=== PATIENT | female | born 1955 | race Caucasian/White ===

== ENCOUNTER → 2016-10-16 | Outpatient (CLI) | payer BC, OTHER ==
[~2016-10-16] MED LIST: CITRTAB14 PO; ENTERO VU 24% w/v SUSP BTL 600ML As Ordered ONE; FLON0.054; HYDR25TAB PO; LIPI20TA PO; LISI40TAB PO; MULTCAP PO; OMEP40CA2 PO; SYNT88TA2 PO
--- NOTE | 2016-10-16 11:04 | REP ---
SMALL FOLLOW-THROUGH STUDY: HISTORY: Abnormality of the small intestine on CT study July 08, 2016. COMPARISON STUDIES: Comparison CT study reviewed from the July 08, 2016, April 19, 2014, and April 06, 2012. Previous small bowel follow-through study is reviewed from May 13, 2012. FINDINGS: Today's preliminary special services coordinator radiograph is noncontributory. Bowel gas pattern is unremarkable. Sequential small bowel images taken after the ingestion of Entero-VU demonstrate normal caliber jejunal and ileal folds. No obstructive lesion is seen. No mural thickening or fold thickening is seen. The small bowel folds in the jejunum are more numerous than usual but not frankly reversed. This raises question of celiac disease. Terminal ileum is morphologically unremarkable on fluoroscopic spot views. On review, this patient has a recurrent pattern on serial CT studies of intermittent distal ileal mural thickening, mesenteric inflammation, and a mild ascitic fluid . Follow-up CT and small bowel follow-through studies have been normal. IMPRESSION: The mucosal folds in the ileum are more numerous than usual. This raises a question of celiac disease. Otherwise unremarkable small bowel follow-through study Fluoroscopy time was 24 seconds. Signed by Fito Moraes MD 10/16/2016 06:35 P
== END ==
LOC: M RAD 08:22
PROVIDERS: ATTEND Internal Medicine Gastroenterology
DX: R93.3 Abnormal findings on diagnostic imaging of other parts of digestive tract (principal)

== ENCOUNTER → 2016-11-13 | Outpatient (CLI) | payer BC, OTHER ==
[~2016-11-13] VITALS: Ht 157.5 cm; Wt 87.5 kg
[~2016-11-13] MED LIST changes: +CITRTAB18 PO; -ENTERO VU 24% w/v SUSP BTL 600ML As Ordered ONE; +FLON1SPR; +LISI10TA2 PO; +MAGN500T6 PO; +NS 1,000 ML IV ONE; +PROPOFOL 200 MG/20 ML VIAL As Ordered ONE
--- NOTE | 2016-11-13 12:11 | ROOR ---
Patient Name: Valentina Marie Procedure Date: 11/13/2016 11:52 AM Date of : 1955 Age: 61 Room: [facility] Gender: Female Note Status: Finalized Procedure: Colonoscopy Indications: High risk colon cancer surveillance: Personal history of colonic polyps Providers: Clint SCOTT MD Referring MD: Sukhwinder Gregory NP Requesting Provider: Medicines: Monitored Anesthesia Care Complications: No immediate complications. Procedure: Pre-Anesthesia Assessment: - The heart rate, respiratory rate, oxygen saturations, blood pressure, adequacy of pulmonary ventilation, and response to care were monitored throughout the procedure. The Colonoscope was introduced through the anus and advanced to the cecum, identified by appendiceal orifice and ileocecal valve. The colonoscopy was performed without difficulty. The patient tolerated the procedure well. The quality of the bowel preparation was good. Findings: The perianal and digital rectal examinations were normal. Three flat polyps were found in the sigmoid colon and ascending colon. The polyps were diminutive in size. These polyps were removed with a jumbo cold forceps. Resection and retrieval were complete. Small Internal Hemorrhoids. The exam was otherwise without abnormality on direct and retroflexion views. Impression: - Three diminutive polyps in the sigmoid colon and in the ascending colon, removed with a jumbo cold forceps. Resected and retrieved. - Small Internal Hemorrhoids. - The examination was otherwise normal on direct and retroflexion views. Recommendation: - Telephone endoscopist for pathology results in 2 weeks. - If the pathology report reveals adenomatous tissue, then repeat the colonoscopy for surveillance in 5 years. - If the pathology report indicates hyperplastic polyp, then repeat colonoscopy for screening purposes in 10 years. Clint Scott MD Clint SCOTT MD 11/13/2016 12:11:15 PM This report has been signed electronically. Number of Addenda: 0 Note Initiated On: 11/13/2016 11:52 AM Estimated Blood Loss: Estimated blood loss: none.
[2016-11-13 12:30] VITALS: BP 123/58
== END ==
LOC: M OPP 09:59
PROVIDERS: ATTEND Internal Medicine Gastroenterology
DX: Z12.11 Encounter for screening for malignant neoplasm of colon (principal); Z86.010 Personal history of colon polyps; D12.5 Benign neoplasm of sigmoid colon; D12.2 Benign neoplasm of ascending colon; K64.8 Other hemorrhoids; E03.9 Hypothyroidism, unspecified; K21.9 Gastro-esophageal reflux disease without esophagitis; E78.00 Pure hypercholesterolemia, unspecified; Z79.899 Other long term (current) drug therapy; Z88.5 Allergy status to narcotic agent

== ENCOUNTER 2016-11-30 09:23 | Observation (INO) | payer BC, OTHER ==
[~2016-11-30 09:23] MED LIST changes: -NS 1,000 ML IV ONE; -PROPOFOL 200 MG/20 ML VIAL As Ordered ONE
[2016-11-30] MEDS ORDERED: AMIODARONE 150MG/3ML INJ (J0282) IVP STA (09:37)
[2016-11-30] MEDS ORDERED: AMIODARONE HCL 150 MG/100 ML PREMIXED BAG (NEXTERONE) As Ordered ONE (09:38)
--- NOTE | 2016-11-30 09:40 | ED PDOC ---
Post-Departure Follow-Up Patient seen by Dr. Fraser upon arrival. I assisted by entering orders for him only Emily Harmon MD November 30, 2016 09:40
[2016-11-30 10:01] LABS: BASO % 0.3 % (0.0-1.0); EOS # 0.1 K/mm3 (0.0-0.50); EOS % 1.5 % (0.0-3.0); LARGE UNSTAINED CELL # 0.1 K/mm3 (0.0-0.4); LARGE UNSTAINED CELL % 1.2 % (0.0-4.0); LYMPH # 1.9 K/mm3 (1.5-4.5); LYMPH % 27.8 % (24.0-44.0); MEAN CORPUSCULAR HEMOGLOBIN 30.2 pg (27.0-33.0); MEAN CORPUSCULAR VOLUME 88.9 fl (80.0-96.0); MONO # 0.3 K/mm3 (0.0-0.8); MONO % 4.8 % (0.0-5.0); NEUTROPHILS # 4.2 K/mm3 (1.8-7.7); NEUTROPHILS % 64.5 % (36.0-66.0); PLATELET COUNT, AUTOMATED 345 k/mm3 (150-450); RED CELL DISTRIBUTION WIDTH 13.1 % (11.5-14.5); WHITE BLOOD COUNT 6.6 K/mm3 (4.0-10.0)
[2016-11-30 10:13] LABS: ALBUMIN 2.9 GM/DL (3.2-5.2); ALBUMIN/GLOBULIN RATIO 0.78 (1.00-1.93); ALKALINE PHOSPHATASE 62 U/L (45-117); ALT/SGPT 28 U/L (12-78); ANION GAP 8 MEQ/L (8-16); AST/SGOT 20 U/L (15-37); BILIRUBIN,DIRECT < 0.1 MG/DL (0.0-0.2); BILIRUBIN,TOTAL 0.3 MG/DL (0.2-1.0); BLOOD UREA NITROGEN 18 MG/DL (7-18); CALCIUM LEVEL 8.1 MG/DL (8.8-10.2); CARBON DIOXIDE LEVEL 29 MEQ/L (21-32); CHLORIDE LEVEL 106 MEQ/L (98-107); CREATININE FOR GFR 1.06 MG/DL (0.55-1.02); FREE T4 1.23 NG/DL (0.76-1.46); GLOMERULAR FILTRATION RATE 56.1 (>45); GLUCOSE, FASTING 107 MG/DL (80-110); POTASSIUM SERUM 4.1 MEQ/L (3.5-5.1); SODIUM LEVEL 143 MEQ/L (136-145); TOTAL PROTEIN 6.6 GM/DL (6.4-8.2)
[2016-11-30 10:14] LABS: INR 1.06
--- NOTE | 2016-11-30 10:33 | REP ---
Clinical: Chest pain . Comparison: 08/21/2015 . Technique: PA and lateral. Findings: The mediastinum and cardiac silhouette are normal. The lung martinez are clear and without acute consolidation, effusion, or pneumothorax. The skeletal structures are intact and normal. Impression: 1. No acute cardiopulmonary process. Signed by Trey Laguna MD 11/30/2016 10:24 A
[2016-11-30] MEDS ORDERED: KCL 20MEQ IN D5/0.45NS 1000ML 1,000 ML IV SCH (10:45)
[2016-11-30] MEDS ORDERED: HEPARIN DRIP 25,000 UNITS in APPROPRIATE DILUENT 1 EA IV SCH ×2 (11:00→16:15)
[2016-11-30] MEDS ORDERED: AMIODARONE HCL 150 MG in APPROPRIATE DILUENT 1 EA IV ONE (11:00)
--- NOTE | 2016-11-30 11:33 | CR ---
CRITICAL CARE CARDIOLOGY CONSULTATION: DATE OF CONSULTATION: 11/30/2016 CRITICAL CARE START TIME: 8:25 a.m. CRITICAL CARE STOP TIME: 10:00 a.m. PRIMARY CARE PHYSICIAN: Sukhwinder Gregory, Nurse Practitioner INDICATION: Chest pressure and near syncope. 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 While sitting at her desk working on her computer, she developed a chest pressure that radiated through to her back. Noted accompanying faintness and diaphoresis. She finally brought this to coworkers attention at approximately 8:25 a.m. who promptly sought my attention. She was shifted to one of our examination rooms and connected to a bedside cardioverter defibrillator monitor. An IV was started in her right arm. Initial vital signs showed a heart rate of 160 beats per minute, blood pressure 165/80, respiratory rate was 28 per minute, oxygen saturation was 98% on room air. Her gambling monitor showed atrial fibrillation with rapid ventricular response averaging 160-170 beats per minute (BPM). Initial EKG showed mild anterolateral ST depression. The patient was given immediately digoxin 0.5 mg IV, followed by metoprolol 5 mg IV every 5 minutes for 6 doses under close clinical and EKG monitoring. At the same time, she was given aspirin 162 mg to chew and swallow, and heparin 5000 units IV bolus. Following these measures, the patient's chest pressure significantly improved from initial 10/10 to 2-3/10. Her heart rate decreased to 90-100 beats per minute but still irregular. Blood pressure was 135/70. The patient was free of any dyspnea but still felt a little lightheaded when she shifted her position. An ambulance have been summoned and transferred her to [facility] emergency room (ER) arriving here at 9:32 a.m. Just prior to her transfer, she had received amiodarone 150 mg IV over 10 minutes. KNOWN PAST CARDIAC DISEASE/EVENTS/TESTS: Has had a history of a weight problem and hypertension for some time, though serial echocardiograms performed for heart murmur have never shown any structural or functional abnormality to suggest hypertensive heart disease. Her last echocardiogram 2012 showed normal heart chamber sizes, wall thickness and wall motion. Doppler assessment of LV diastolic function was normal. Right heart chambers were upper limits of normal with borderline pulmonary hypertension. Valvular structures appeared and functioned normally. Has a history of small patent foremen ovale with very subtle left to right intra-atrial shunting. No pericardial effusion. Has had a history of intermittent chest discomfort in the past with previous negative workups. Treadmill Cardiolite heart scan 07/23/2008 showed good exercise tolerance completing 9 minutes on standard Luc protocol with heart rate 187 beats per minute, blood pressure up to 248/80, stopping with shortness of breath but no chest pain. Baseline repolarization EKG abnormalities became no more than marginally worse. Left ventricular size and wall motion was normal. Normal pulmonary uptake at peak exercise against her dyspnea being cardiogenic. Myocardial perfusion images were normal. CORONARY RISK FACTORS: Age, obesity, hypertension, and hypercholesterolemia. Has never been a smoker. No history of diabetes mellitus or family history of premature coronary heart disease. OTHER PAST MEDICAL HISTORY: Two normal vaginal deliveries. Total abdominal hysterectomy with bilateral salpingo-oophorectomy 2000 for menorrhagia and fibroid uterus. Gastroesophageal reflux disease with prior endoscopy with Dr. Scott, gastroenterology. Continues on omeprazole therapy with good effect. History of prior colonic polypectomy - benign. Last study done last month. Longstanding weight problem. Chronic hypothyroidism - Purvi's thyroiditis query, on replacement therapy. Prior herpes zoster. Prior ovarian endometriosis. Previous gastroenteritis with hospitalization for abdominal pain April 2014. 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 REVIEW OF SYSTEMS: Has been free of any fever, chills or weight loss. Wears corrective lenses for reading. Chest pressure with no associated gastrointestinal (GI) complaints at this time. Denies cough, sputum or shortness of breath. No history of sleep apnea. Longstanding heart murmur but no history of rheumatic fever. No history of varicose veins, dependent edema, phlebitis or pulmonary embolism. No dysuria or hematuria. No history of kidney stones. Seasonal allergies, takes Flonase with good effect. MEDICATIONS: At home she takes: - lisinopril /HCTZ - 10/12.5 mg daily - Lipitor 20 mg nightly - omeprazole 20 mg daily - magnesium 500 mg daily - multivitamin one tablet daily - levofloxacin 88 mcg daily - Flonase one inhalation each nostril daily - multivitamin one tablet daily with calcium with vitamin D one tablet daily ALLERGIES: HYDROCODONE (pruritus). PHYSICAL EXAMINATION: Constitutional: Obese, pleasant, bright, alert, late middle-aged woman with some distress with the head of bed elevated 30 degrees. No current pallor or cyanosis. Vital signs: Current heart rate 90s per minute and irregular, blood pressure 135/70 supine, respiratory rate 18 per minute, oxygen saturation 98% on room air. Afebrile. Height 62 inches, weight 193 pounds, body mass index (BMI) 33.4. Eyes: Normal conjunctivae and lids. No xanthelasma. ENT/Mouth: Dentition in good repair. Normal oral moisture. No central cyanosis. Neck: Trachea midline. Thyroid appeared to be palpable. Neck veins did not appear to be elevated. Respiratory: Slightly increased chest diameter with good chest expansion. Good air entry over both lung martinez with no current abnormal pulmonary adventitious sounds. Cardiovascular: Apical impulse not palpable. Heart sounds were slightly distant and variable with her atrial fibrillation. No audible gallop or murmur at this time. No pericardial rub. Normal carotid upstroke with variable volume with no bruits. Upper extremity pulses were symmetrical and normal. Pedal pulses and femoral pulses were normal. Abdominal aorta not palpable. No abdominal bruits. No varicose veins or dependent edema. Extremities: No clubbing, peripheral cyanosis or splinter hemorrhages. Gastrointestinal: Obese with well-healed lower median abdominal scar post hysterectomy. No palpable hepatosplenomegaly. Normal bowel sounds. Rectal examination not indicated but stool for occult blood will be requested. Musculoskeletal: No obvious joint deformities. Normal-appearing strength and tone. Normal spine curvature. Neuro/Psych: Bright, alert and oriented. Gave a lucid history. Eye, facial, and extremity wounds were symmetrical and normal. No abnormal movements. Was somewhat anxious related to her distress. Skin: No rashes, ecchymotic lesions, pallor or icterus. INVESTIGATIONS: Serial EKGs: Initial tracing at 8:17 a.m. showed underlying atrial fibrillation with rapid ventricular response averaging 160 BPM. Somewhat low voltages with slow precordial R-wave progression and persistent S waves in V5 and V6 in keeping with her body habitus. Incomplete right bundle branch block. Inferolateral subtle ST/T wave abnormalities. Followup tracing 8:48 a.m. shows heart rate down to 126 beats per minute with resolution of lateral ST segment depressions. Has still subtle ST/T wave abnormalities lead III and AVF, but these were not changed from our prior tracings. Final EKG at 9:02 a.m. showed heart rate 105 beats per minute and no other change. Blood work: Hemoglobin was 12.8 with normal white blood cell count and platelet count. PT/INR was 13.9/1.6. PTT was elevated at 106 following a bolus of heparin administered in my office prior to her arrival at [facility]. Electrolytes all were normal with BUN 18, creatinine 1.1, random glucose 107. Liver function studies were normal. Troponin I level was 0.02. Normal CPK. Ultra sensitive TSH was normal at 2.57. PA and left lateral chest x-ray: Reviewed independently shows at least borderline cardiomegaly with CT ratio of 15.5:30.7. Normal appearing thoracic aorta, perhaps marginally congested pulmonary vessels but no infiltrate or pleural effusion. Marginal degenerative compression of lower thoracic vertical bodies. IMPRESSION/PLAN: 1. Chest pain (precordial): Prolonged discomfort with no clear nonanginal features believed to be triggered by her atrial fibrillation with rapid ventricular response. Initial repolarization abnormalities on her EKG have normalized. Her distress is considerably improved with rate control of her atrial fibrillation. Initial cardiac enzymes are negative. Our plan at this point is to keep her closely monitored in the emergency room pending followup EKG and cardiac enzymes at 1:30 p.m. (6 hours following the onset of her symptoms). Should these be negative and her rhythm convert to sinus rhythm, we will plan on discharging her for further outpatient evaluation. Should her Troponin I become indeterminate, we will arrange for transfer for cardiac catheterization with possible revascularization. 2. New onset atrial fibrillation with rapid ventricular response: Her atrial tachyarrhythmia is believed to be the cause of her symptoms this morning. Interestingly, despite her arrhythmia, she is completely free of any palpitations. Her heart rate has been controlled well with combination digoxin IV, IV, nothing by mouth, metoprolol. She has been given amiodarone 150 mg IV infusion over 10 minutes times two 1/2 hour apart with sustained atrial fibrillation at this time. She has received two baby chewable aspirin and IV bolus of heparin and continues on IV heparin infusion in light of her new onset arrhythmia and acute onset chest pain. Should her discomfort resolve, her arrhythmia convert and cardiac markers remain negative, our plan is to discharge her home on combination digoxin, atenolol and amiodarone with Xarelto. 3. Abnormal EKG: Low voltages, poor precordial R-wave progression with persistent S waves in lateral precordial leads and incomplete right bundle branch block believed to be related to her body habitus. Previous echocardiograms have shown right heart chamber sizes upper limits of normal with only borderline pulmonary hypertension. Repolarization abnormalities were observed with her rapid heart rate but these have virtually normalized at this time. 4. Essential hypertension: Despite her atrial tachyarrhythmia is free of any shortness of breath. Pulmonary vessels appear to be slightly prominent on her chest x-ray, but this may very well have been artifactual because of her obesity. Recent echocardiograms have shown no evidence of hypertensive heart disease. Left atrial size was 3.3 cm and Doppler assessment of LV function at that time was normal. Her current blood pressure has been recently well controlled with lisinopril/hydrochlorothiazide. At this time, we will be having her on beta-rosenda in addition to perhaps low-dose lisinopril +/- hydrochlorothiazide. Electrolytes and renal function are normal. Urinalysis is benign. 5. Purvi thyroiditis/hypothyroidism: Clinically and chemically euthyroid on stable replacement therapy. This condition is not believed to be contributing to her current rhythm disturbance. 6. Obesity (BMI 33): Will emphasize the importance of caloric restriction with regular low-level aerobic exercise for least 30 minutes daily in hopes of improving this problem. I suspect this may be responsible for her at least borderline pulmonary hypertension. 7. Hyperlipidemia: Followup blood work has been requested, but she appears to tolerate her current statin therapy without adverse effect. Liver function studies were normal. Last available lipid profile May 2014 showed a total cholesterol of 282, LDL 197, HDL was 63 with total/HDL ratio of 4.5, triglycerides were 110. We have discussed our plan with the patient who appears to understand and agree. Further investigations and management will depend on followup studies to be performed at 1:30 p.m. today. [facility]
[2016-11-30] MEDS ORDERED: AMIODARONE 200 MG TAB (PACERONE) PO SCH (12:00)
[2016-11-30 12:21] LABS: CHOLESTEROL LEVEL 224 MG/DL (<200); TRIGLYCERIDES LEVEL 38 MG/DL (<150)
[2016-11-30] MEDS ORDERED: ATENOLOL 25 MG TAB PO SCH (14:00)
[2016-11-30 14:27] LABS: INR 1.01
--- NOTE | 2016-11-30 14:58 | ECGEPIP ---
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
--- NOTE | 2016-11-30 15:07 | ECGEPIP ---
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
[2016-11-30] MEDS ORDERED: AMIODARONE HCL 150 MG in APPROPRIATE DILUENT 1 EA IV STA (15:25)
[2016-11-30] MEDS ORDERED: GI COCKTAIL 50ML BTL(HYOSCYAMINE/MAALOX/LIDOCAINE VISCOUS)(1:3:1) PO ONE (15:30)
[2016-11-30 18:56] VITALS: BP 146/64
[2016-11-30] MEDS ORDERED: FLEC50TA PO (19:15)
[2016-11-30] MEDS ORDERED: DIGO0.2556 IV (19:15)
[2016-11-30] MEDS ORDERED: ATEN25TA PO (19:15)
[2016-11-30] MEDS ORDERED: XARE20TA PO (19:15)
--- NOTE | 2016-11-30 19:51 | IPN ---
DATE: 11/30/2016 CARDIOLOGY PROGRESS NOTE Patient finally converted to a sinus rhythm and is currently asymptomatic. Her chest discomfort resolved following a gastrointestinal (GI) cocktail administered earlier today. Currently asymptomatic. Supine heart rate 58 beats per minute and regular, blood pressure 137/63. Sitting blood pressure 146/64 with heart rate increasing to 79 beats per minute. EKG showing sinus bradycardia at 54 beats per minute (BPM) with somewhat low voltages, incomplete right bundle branch block and persistent S waves in V5-V6 in keeping with body habitus versus pulmonary disease. Subtle inferolateral ST abnormalities likely related to digoxin effect. Followup cardiac enzymes were negative. Fasting lipid profile showed improved values from 2013. At this point, the patient was anxious to be discharged home. She was disconnected from the monitor. Her IV was discontinued. At this point, we discussed her dietary measures and disposition: No added salt, low-fat, low-cholesterol diet. Activity as tolerated. Medications will now include: - digoxin 0.25 mg daily to be started in the morning - atenolol 25 mg by mouth daily to be started in the morning - flecainide 50 mg twice a day to be started morning - Xarelto 20 mg at bedtime to be started tomorrow evening. Her other medications will continue the same. She was encouraged to avoid caffeinated beverages and alcohol, [id number] decongestants, pep pills or diet aids. We will arrange for an outpatient clinic visit in approximately one weeks' time.
[2016-11-30] MEDS ORDERED: LISINOPRIL 5 MG TAB PO SCH (20:00)
[2016-11-30] MEDS ORDERED: MAGNESIUM OXIDE 400 MG TAB (MAG-OX) PO SCH (21:00)
[2016-12-01] MEDS ORDERED: LEVOTHYROXINE 0.088 MG TAB (88 MCG) PO SCH (06:00)
[2016-12-01] MEDS ORDERED: OMEPRAZOLE 20 MG CAP PO SCH (09:00)
== END 2016-11-30 19:45 | disposition home or self-care (01) ==
LOC: EDBD 09:23 → M ED 09:56 → M ED INP 15:30
PROVIDERS: ADMIT Internal Medicine Cardiovascular Disease; ATTEND Internal Medicine Cardiovascular Disease
DX: R07.2 Precordial pain (principal); I48.91 Unspecified atrial fibrillation; R94.31 Abnormal electrocardiogram [ECG] [EKG]; R55 Syncope and collapse; I10 Essential (primary) hypertension; E06.3 Autoimmune thyroiditis; E66.9 Obesity, unspecified; Z68.33 Body mass index [BMI] 33.0-33.9, adult; E78.5 Hyperlipidemia, unspecified; K21.9 Gastro-esophageal reflux disease without esophagitis; K57.90 Diverticulosis of intestine, part unspecified, without perforation or abscess without bleeding; Z88.5 Allergy status to narcotic agent; Z79.899 Other long term (current) drug therapy

== ENCOUNTER 2016-12-19 17:44 | Emergency (ER) | payer BC, OTHER ==
[~2016-12-19] VITALS: Ht 157.5 cm; Wt 91.6 kg
[~2016-12-19 17:44] MED LIST changes: +ATEN25TA PO; +DIGO0.2556 IV; +FLEC50TA PO; +XARE20TA PO
[2016-12-19] MEDS ORDERED: VITA100037 PO (18:04)
[2016-12-19] MEDS ORDERED: ATEN25TA PO (18:04)
[2016-12-19] MEDS ORDERED: DIGO0.12 PO (18:04)
[2016-12-19 19:27] LABS: BASO % 0.2 % (0.0-1.0); EOS # 0.1 K/mm3 (0.0-0.50); EOS % 2.2 % (0.0-3.0); LARGE UNSTAINED CELL # 0.1 K/mm3 (0.0-0.4); LARGE UNSTAINED CELL % 2.1 % (0.0-4.0); LYMPH # 1.7 K/mm3 (1.5-4.5); LYMPH % 26.4 % (24.0-44.0); MEAN CORPUSCULAR HEMOGLOBIN 30.1 pg (27.0-33.0); MEAN CORPUSCULAR HGB CONC 34.1 g/dl (32.0-36.5); MEAN CORPUSCULAR VOLUME 88.3 fl (80.0-96.0); MONO # 0.4 K/mm3 (0.0-0.8); MONO % 6.5 % (0.0-5.0); NEUTROPHILS # 3.8 K/mm3 (1.8-7.7); NEUTROPHILS % 62.6 % (36.0-66.0); PLATELET COUNT, AUTOMATED 279 k/mm3 (150-450); RED CELL DISTRIBUTION WIDTH 14.3 % (11.5-14.5); WHITE BLOOD COUNT 6.1 K/mm3 (4.0-10.0)
[2016-12-19 19:45] LABS: ANION GAP 7 MEQ/L (8-16); BLOOD UREA NITROGEN 16 MG/DL (7-18); CARBON DIOXIDE LEVEL 29 MEQ/L (21-32); CHLORIDE LEVEL 104 MEQ/L (98-107); CREATININE FOR GFR 1.15 MG/DL (0.55-1.02); FREE T4 1.27 NG/DL (0.76-1.46); GLOMERULAR FILTRATION RATE 51.1 (>45); GLUCOSE, FASTING 105 MG/DL (80-110); MAGNESIUM LEVEL 1.8 MG/DL (1.8-2.4); POTASSIUM SERUM 3.7 MEQ/L (3.5-5.1); SODIUM LEVEL 140 MEQ/L (136-145)
[2016-12-19] MEDS ORDERED: FUROSEMIDE 20 MG TAB PO ONE (20:30)
[2016-12-19 20:53] LABS: DIGOXIN LEVEL 1.6 NG/ML (0.5-2.0)
[2016-12-19] MEDS ORDERED: LASI20TA PO (21:05)
[2016-12-19 21:18] VITALS: BP 157/68
--- NOTE | 2016-12-20 08:59 | REP ---
Portable chest, single AP view, the patient sitting, 12/19/2016, 12/1958 p.m.: Comparison is 11/30/2016. The lung martinez are clear. The cardiac size is normal. The mary anne, mediastinum, and bony thorax are unremarkable. Impression: Negative portable chest. There is no interval change. Signed by Gilberto Dean MD 12/20/2016 08:50 A
--- NOTE | 2016-12-20 19:29 | ECGEPIP ---
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
== END 2016-12-19 21:31 | disposition home or self-care (01) ==
LOC: M ED 21:10
DX: I50.30 Unspecified diastolic (congestive) heart failure (principal); I48.91 Unspecified atrial fibrillation; I11.9 Hypertensive heart disease without heart failure; E78.00 Pure hypercholesterolemia, unspecified; K52.9 Noninfective gastroenteritis and colitis, unspecified; E03.9 Hypothyroidism, unspecified; M54.9 Dorsalgia, unspecified; Z79.899 Other long term (current) drug therapy; Z79.01 Long term (current) use of anticoagulants; Z88.5 Allergy status to narcotic agent

== ENCOUNTER → 2017-03-02 | Outpatient (CLI) | payer BC, OTHER ==
[~2017-03-02] MED LIST changes: +DIGO0.12 PO; +LASI20TA PO; +VITA100067 PO
--- NOTE | 2017-03-06 09:07 | SLEEPCENT ---
DATE OF PROCEDURE: 03/02/2017 ORDERING PROVIDER: Jeanette Valiente NP INTERPRETATION: Nocturnal polysomnography was performed due to concern for the obstructive sleep apnea syndrome in this patient with a history of excessive somnolence. 7 hours and 24 minutes of data were reviewed. There were 389 minutes of sleep identified. Sleep latency was prolonged at 40 minutes. Rapid eye movement (REM) latency was normal at 88 minutes. Sleep architecture was fairly well preserved with three REM periods appreciated. Overall sleep efficiency was 88.6%. The patient's electrocardiogram (EKG) showed a sinus rhythm with an average heart rate of 55 beats per minute. Electroencephalogram (EEG) showed mild coarsening in the background. Otherwise, normal waveforms for awake and sleep. There were 98 respiratory events identified of 10 seconds in duration or greater for an apnea-hypopnea index of 15.1. The events were primarily obstructive, not exclusive to sleep stage nor body posture. Oxygen desaturations were seen into the low 80s. There was little activity in limb leads. The remaining measures of sleep physiology were normal. IMPRESSION: Moderate obstructive sleep apnea syndrome (G47.33). Apnea hypopnea index of 15.1. RECOMMENDATIONS: The patient should be encouraged to return to the sleep disorder center for pressure therapy. In the interim, alcohol and sedative avoidance should be practiced and caution exercised during the operation of motor vehicles.
== END ==
LOC: M SLEEP 19:30
PROVIDERS: ATTEND Nurse Practitioner Adult Health
DX: G47.33 Obstructive sleep apnea (adult) (pediatric) (principal)

== ENCOUNTER → 2017-03-16 | Outpatient (REF) | payer OTHER, BC ==
[2017-03-16 21:41] LABS: CALCIUM OXALATE CRYSTALS MODERATE
== END ==
LOC: M LAB REF 21:14
PROVIDERS: ATTEND Physician Assistant Medical
DX: N39.0 Urinary tract infection, site not specified (principal)

== ENCOUNTER → 2017-04-08 | Outpatient (CLI) | payer BC, OTHER ==
--- NOTE | 2017-04-14 00:20 | SLEEPCENT ---
DATE OF PROCEDURE: 04/08/2017 ORDERED BY: Jeanette Valiente Nocturnal polysomnography was performed for the titration of pressure therapy in this patient with obstructive sleep apnea syndrome, apnea-hypopnea index of 15.1. For testing, the patient was fit with a [employer]a Simplus full-face mask of small size, 4 cm of water pressure were applied to the circuit and the lights were extinguished. 7 hours and 49 minutes of data were reviewed. There were 378 minutes of sleep identified. Sleep latency was normal at 8 minutes. Rapid eye movement (REM) latency was normal at 68 minutes. Sleep architecture improved with optimal pressure therapy. Overall sleep efficiency was 82.2% and there were four REM periods identified. The EKG showed a sinus rhythm with an average heart rate of 55 beats per minute. EEG showed normal waveforms for awake and sleep. Respiratory events were found best palliated with continuous positive airway pressure (CPAP) at a pressure of +7. Remaining measures of sleep physiology were normal. IMPRESSION: Obstructive sleep apnea syndrome (G47.33). RECOMMENDATION: Nightly use of pressure therapy 7 cm of water. Copy To: Dr. Fraser
== END ==
LOC: M SLEEP 19:31
PROVIDERS: ATTEND Nurse Practitioner Adult Health
DX: G47.33 Obstructive sleep apnea (adult) (pediatric) (principal)

== ENCOUNTER 2017-09-29 22:29 | Emergency (ER) | payer BC, OTHER ==
[2017-09-30 01:57] LABS: BASO % 0.2 % (0.0-1.0); EOS # 0.1 10^3/uL (0.0-0.50); EOS % 1.3 % (0.0-3.0); HEMATOCRIT 34.5 % (36.0-47.0); HEMOGLOBIN 11.6 g/dl (12.0-16.0); IMMATURE GRANULOCYTE % 0.4 % (0-3.0); LYMPH # 2.4 10^3/uL (1.5-4.5); LYMPH % 27.2 % (24.0-44.0); MEAN CORPUSCULAR HGB CONC 33.6 g/dl (32.0-36.5); MEAN CORPUSCULAR VOLUME 89.1 fl (80.0-96.0); MONO # 0.8 10^3/uL (0.0-0.8); MONO % 9.2 % (0.0-5.0); NEUTROPHILS # 5.5 10^3/uL (1.8-7.7); NEUTROPHILS % 61.7 % (36.0-66.0); PLATELET COUNT, AUTOMATED 308 10^3/uL (150-450); RED BLOOD COUNT 3.87 10^6/uL (4.00-5.40); RED CELL DISTRIBUTION WIDTH 13.2 % (11.5-14.5); WHITE BLOOD COUNT 8.9 10^3/uL (4.0-10.0)
[2017-09-30 02:39] LABS: ALBUMIN 3.3 GM/DL (3.2-5.2); ALBUMIN/GLOBULIN RATIO 0.94 (1.00-1.93); ALKALINE PHOSPHATASE 57 U/L (45-117); ALT/SGPT 44 U/L (12-78); ANION GAP 7 MEQ/L (8-16); AST/SGOT 21 U/L (7-37); BILIRUBIN,DIRECT 0.1 MG/DL (0.0-0.2); BILIRUBIN,TOTAL 0.3 MG/DL (0.2-1.0); BLOOD UREA NITROGEN 23 MG/DL (7-18); CALCIUM LEVEL 9.5 MG/DL (8.8-10.2); CARBON DIOXIDE LEVEL 30 MEQ/L (21-32); CHLORIDE LEVEL 103 MEQ/L (98-107); DIGOXIN LEVEL 0.9 NG/ML (0.5-2.0); FREE T4 1.14 NG/DL (0.76-1.46); GLOMERULAR FILTRATION RATE 53.6 (>45); GLUCOSE, FASTING 108 MG/DL (70-100); NT-PRO BNP 42 PG/ML (<125); POTASSIUM SERUM 3.9 MEQ/L (3.5-5.1); SODIUM LEVEL 140 MEQ/L (136-145); TOTAL PROTEIN 6.8 GM/DL (6.4-8.2)
== END 2017-09-30 03:35 | disposition home or self-care (01) ==
LOC: M ED 22:29
DX: R60.0 Localized edema (principal); I48.91 Unspecified atrial fibrillation; I25.10 Atherosclerotic heart disease of native coronary artery without angina pectoris; K21.9 Gastro-esophageal reflux disease without esophagitis; Z79.01 Long term (current) use of anticoagulants; Z79.899 Other long term (current) drug therapy; Z86.69 Personal history of other diseases of the nervous system and sense organs; Z88.5 Allergy status to narcotic agent
CPT/HCPCS: 71046

== ENCOUNTER → 2017-09-29 | Outpatient (CLI) | payer BC, OTHER ==
[2017-09-29 18:43] LABS: ANION GAP 8 MEQ/L (8-16); BLOOD UREA NITROGEN 23 MG/DL (7-18); CALCIUM LEVEL 9.5 MG/DL (8.8-10.2); CARBON DIOXIDE LEVEL 32 MEQ/L (21-32); CHLORIDE LEVEL 100 MEQ/L (98-107); CREATININE FOR GFR 1.24 MG/DL (0.55-1.30); FREE T3 2.7 PG/ML (2.2-4.0); FREE T4 1.22 NG/DL (0.76-1.46); GLOMERULAR FILTRATION RATE 46.7 (>45); GLUCOSE, FASTING 89 MG/DL (70-100); POTASSIUM SERUM 4.5 MEQ/L (3.5-5.1); SODIUM LEVEL 140 MEQ/L (136-145)
== END ==
LOC: M LAB 16:28
DX: R60.0 Localized edema (principal); E03.9 Hypothyroidism, unspecified

== ENCOUNTER → 2017-10-07 | Outpatient (CLI) | payer BC, OTHER ==
[2017-10-07 18:42] LABS: RHEUMATOID FACTOR QUANT < 10.0 IU/ML (<15.0)
[2017-10-07 19:11] LABS: ERYTHROCYTE SEDIMENTATION RATE 67 mm/hr (0-30)
== END ==
LOC: M LAB 02:11
DX: M19.041 Primary osteoarthritis, right hand (principal)
CPT/HCPCS: 36415

== ENCOUNTER → 2017-10-12 | Outpatient (CLI) | payer BC, OTHER ==
[2017-10-12 19:37] LABS: C REACTIVE PROTEIN QUANTITATIV 1.71 MG/DL (0.00-0.30)
[2017-10-14 10:14] LABS: ANTINUCLEAR ANTIBODIES DIRECT Negative (Negative)
== END ==
LOC: M WUC 16:39
DX: R70.0 Elevated erythrocyte sedimentation rate (principal)
CPT/HCPCS: 86140

== ENCOUNTER → 2018-05-03 | Outpatient (CLI) | payer BC, OTHER | LOC: M WUC 11:49 | DX: M25.511 Pain in right shoulder (principal) | CPT/HCPCS: 73030 ==

== ENCOUNTER → 2018-07-08 | Outpatient (REF) | payer BC ==
[~2018-07-08] MED LIST changes: +FLEC50HA PO; -FLEC50TA PO; -LASI20TA PO; +LASI20TA3 PO; +SPIR-10
[2018-07-13 15:23] LABS: PERCENT SATURATION 19.7 % (13.2-45.0)
== END ==
LOC: M LAB REF 13:24
PROVIDERS: ATTEND Internal Medicine Nephrology
DX: D64.9 Anemia, unspecified (principal)

== ENCOUNTER → 2018-08-09 | Outpatient (CLI) | payer BC, OTHER ==
--- NOTE | 2018-08-11 15:28 | SLEEPCENT ---
DATE OF PROCEDURE: 08/09/2018 ORDERING PROVIDER: Isis Angel Nocturnal polysomnography was performed for a titration of pressure therapy in this patient with known obstructive sleep apnea syndrome. For testing, a ResMed Quattro full face mask of small size was used, 10 cm of water pressure was initially applied to the circuit, and the lights were extinguished. 7 hours and 32 minutes of data were reviewed. There were 298 minutes of sleep identified. Sleep latency was mildly prolonged at 32.5 minutes. Rapid eye movement (REM) latency likewise at 204 minutes. Sleep architecture improved late in the study. There was a period of wake between 11:30 and 1:00 a.m. resulting in reduced sleep efficiency at 66.7%; however, there were two REM cycles noted. The patient's electrocardiogram showed a sinus rhythm with an average heart rate of 60 beats per minute. Electroencephalogram (EEG) showed some artifactual changes. No focal events were identified. There were normal waveforms for awake and sleep stages. Respiratory events were best palliated with C-PAP at a pressure of +12 with which the patient slept through REM in the supine posture without respiratory event or significant oxygen desaturation. IMPRESSION: Obstructive sleep apnea syndrome (G47.33). RECOMMENDATIONS: Nightly use of pressure therapy 12 cm of water.
== END ==
LOC: M SLEEP 19:46
PROVIDERS: ATTEND Nurse Practitioner Family
DX: G47.33 Obstructive sleep apnea (adult) (pediatric) (principal)

== ENCOUNTER → 2018-12-19 | Outpatient (CLI) | payer BC, OTHER ==
[~2018-12-19] MED LIST changes: +HYDR-2541 PO; -HYDR25TAB PO; +LISI40TA52 PO; -LISI40TAB PO
--- NOTE | 2018-12-19 18:08 | REP ---
LUMBAR SPINE, FIVE VIEWS: HISTORY: Back pain. COMPARISON: Chest 09/30/2017. There is an old compression fracture of the T12 vertebral body with mild height loss. There is a new fracture of the superior endplate of the L1 vertebral body with minimal height loss. There is no subluxation. The lumbar intervertebral discs are decreased in height consistent with disc degeneration. Osteophytes are present on L4 and 5. There is narrowing of the L4-5 and L5-S1 facet joints. IMPRESSION: 1. Old T12 compression fracture with mild height loss. 2. There is a new fracture of the superior endplate of the L1 vertebral body with minimal height loss. CT of the lumbar spine may be helpful for further evaluation. 3. Degenerative change as described above. Electronically Signed by Tarun Chavez MD 12/20/2018 08:49 A
== END ==
LOC: M WUC 15:57
PROVIDERS: ATTEND Physician Assistant
DX: M51.36 Other intervertebral disc degeneration, lumbar region (principal); M48.56XD Collapsed vertebra, not elsewhere classified, lumbar region, subsequent encounter for fracture with routine healing; M48.56XA Collapsed vertebra, not elsewhere classified, lumbar region, initial encounter for fracture

== ENCOUNTER → 2019-04-10 | Outpatient (REF) | payer OTHER ==
[~2019-04-10] MED LIST changes: +LISI10TA15 PO; -LISI10TA2 PO; -OMEP40CA2 PO; +OMEP40CA97 PO
== END ==
LOC: M SFHCPLAZ 09:53
PROVIDERS: ATTEND Dermatology
DX: L57.0 Actinic keratosis (principal)

== ENCOUNTER → 2019-09-22 | Outpatient (REF) | payer OTHER | LOC: M LAB REF 15:08 | PROVIDERS: ATTEND Physician Assistant | DX: R31.9 Hematuria, unspecified (principal) ==

== ENCOUNTER 2019-12-27 09:15 | Emergency (ER) | payer BC, OTHER ==
[~2019-12-27] VITALS: Ht 154.9 cm; Wt 86.5 kg
[~2019-12-27 09:15] MED LIST changes: -SPIR-10; +SPIR-10 PO
[2019-12-27] MEDS ORDERED: FERR32TA PO (09:30)
[2019-12-27] MEDS ORDERED: SULF1TAB30 PO (09:30)
[2019-12-27] MEDS ORDERED: CHLO125TA PO (09:30)
[2019-12-27 10:25] LABS: BASO % 0.3 % (0.0-1.0); EOS # 0.1 10^3/uL (0.0-0.5); EOS % 1.4 % (0.0-3.0); HEMATOCRIT 37.2 % (36.0-47.0); HEMOGLOBIN 11.9 g/dl (12.0-15.5); LYMPH # 1.6 10^3/uL (1.5-5.0); LYMPH % 23.1 % (24.0-44.0); MEAN CORPUSCULAR HEMOGLOBIN 30.1 pg (27.0-33.0); MEAN CORPUSCULAR VOLUME 93.9 fl (80.0-96.0); MONO # 0.5 10^3/uL (0.0-0.8); NEUTROPHILS # 4.7 10^3/uL (1.5-8.5); NEUTROPHILS % 67.6 % (36.0-66.0); PLATELET COUNT, AUTOMATED 291 10^3/uL (150-450); RED BLOOD COUNT 3.96 10^6/uL (4.00-5.40)
--- NOTE | 2019-12-27 10:43 | REP ---
Clinical: Acute chest pain . Comparison: 09/30/2017 . Findings: The mediastinum and cardiac silhouette are stable and within normal limits for portable technique. The lung martinez are clear without acute consolidation, effusion, or pneumothorax. Skeletal structures are intact. Impression: No acute cardiopulmonary process appreciated. Electronically Signed by Trey Laguna MD 12/27/2019 10:34 A
--- NOTE | 2019-12-27 10:53 | REP ---
Clinical: Headache and dizziness. Comparison: 01/26/2016. Technique: Axial noncontrast images from the skull base to the vertex with coronal re-formations. . Findings: Age-related changes are appreciated. The ventricles and sulci are symmetric. Pagan-white differentiation is maintained. There is no evidence for acute intracranial hemorrhage, mass/mass effect, pathology or infarction. No extra-axial fluid collection. Calvarium is intact. Paranasal sinuses and mastoid air cells are clear. Impression: Age related changes. No acute intracranial hemorrhage, infarction, or mass/mass effect. Electronically Signed by Trey Laguna MD 12/27/2019 10:45 A
[2019-12-27 11:00] LABS: ALBUMIN 3.4 GM/DL (3.2-5.2); ALT/SGPT 50 U/L (12-78); BILIRUBIN,DIRECT < 0.1 MG/DL (0.0-0.2); BILIRUBIN,TOTAL 0.2 MG/DL (0.2-1.0); BLOOD UREA NITROGEN 16 MG/DL (7-18); CALCIUM LEVEL 8.9 MG/DL (8.8-10.2); CARBON DIOXIDE LEVEL 31 MEQ/L (21-32); CHLORIDE LEVEL 104 MEQ/L (98-107); CK-MB VALUE MASS < 1.0 NG/ML (<3.6); CPK CREATINE PHOSPHOKINASE 151 U/L (26-192); CREATININE FOR GFR 1.02 MG/DL (0.55-1.30); GLOMERULAR FILTRATION RATE 58.1 (>45); GLUCOSE, FASTING 149 MG/DL (70-100); MB/CK RELATIVE INDEX 0.66 (< OR =4); POTASSIUM SERUM 3.6 MEQ/L (3.5-5.1); SODIUM LEVEL 141 MEQ/L (136-145); TROPONIN I < 0.02 NG/ML (< 0.10)
[2019-12-27 14:13] LABS: DIGOXIN LEVEL 0.6 NG/ML (0.5-2.0)
[2019-12-27] MEDS ORDERED: LOSA25TA14 PO (15:03)
[2019-12-27 16:13] LABS: CK-MB VALUE MASS < 1.0 NG/ML (<3.6); CPK CREATINE PHOSPHOKINASE 128 U/L (26-192); MB/CK RELATIVE INDEX 0.78 (< OR =4); TROPONIN I < 0.02 NG/ML (< 0.10)
[2019-12-27 16:30] VITALS: BP 128/58
--- NOTE | 2019-12-28 01:11 | ECGEPIP ---
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
--- NOTE | 2019-12-28 01:29 | ECGEPIP ---
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
[2020-03-25] MEDS ORDERED: VITA200016 PO (14:04)
[2020-03-25] MEDS ORDERED: SULF1TAB30 PO (14:04)
[2020-03-25] MEDS ORDERED: ESSETAB4 PO (14:04)
[2020-03-25] MEDS ORDERED: SYNT137T7 PO (14:04)
[2020-03-25] MEDS ORDERED: FOSA70TA PO (14:04)
[2020-03-25] MEDS ORDERED: [UNRECOGNIZED DRUG - OTHER] (14:04)
[2020-03-25] MEDS ORDERED: CITRTAB18 PO (14:04)
[2020-03-25] MEDS ORDERED: CHLO25TA PO (14:04)
== END 2019-12-27 17:13 | disposition home or self-care (01) ==
LOC: M ED 09:15
DX: R55 Syncope and collapse (principal); I45.10 Unspecified right bundle-branch block; I11.0 Hypertensive heart disease with heart failure; I50.9 Heart failure, unspecified; I48.91 Unspecified atrial fibrillation; E78.9 Disorder of lipoprotein metabolism, unspecified; E07.9 Disorder of thyroid, unspecified; K21.9 Gastro-esophageal reflux disease without esophagitis; M06.9 Rheumatoid arthritis, unspecified; E55.9 Vitamin D deficiency, unspecified; R01.1 Cardiac murmur, unspecified; Z88.5 Allergy status to narcotic agent; Z79.899 Other long term (current) drug therapy; Z79.01 Long term (current) use of anticoagulants

== ENCOUNTER → 2020-03-27 | Outpatient (CLI) | payer BC, OTHER ==
[~2020-03-27] MED LIST changes: +CHLO125TA PO; +CHLO25TA PO; +ESSETAB4 PO; +FERR32TA PO; +FOSA70TA PO; +LOSA25TA14 PO; +SULF1TAB30 PO; +SYNT137T7 PO; +VITA200016 PO; +[UNRECOGNIZED DRUG - OTHER]
== END ==
LOC: M LABSMTC 11:21
PROVIDERS: ATTEND Anesthesiology
DX: Z01.812 Encounter for preprocedural laboratory examination (principal); Z20.828 Contact with and (suspected) exposure to other viral communicable diseases
CPT/HCPCS: C9803; U0003

== ENCOUNTER 2020-04-01 10:41 | Day surgery (SDC) | payer MEDICARE, BC, OTHER ==
[~2020-04-01] VITALS: Ht 157.5 cm; Wt 86.6 kg
[~2020-04-01 10:41] MED LIST changes: +LIDOCAINE 2% 100MG/5ML SDV (FOR ANES.) As Ordered ONE; +NS 1,000 ML IV ONE; +propofoL 200 MG/20 ML VIAL As Ordered ONE
--- NOTE | 2020-04-01 12:20 | ROOR ---
Patient Name: Valentina Marie Procedure Date: 04/01/2020 11:55 AM Date of : 1955 Age: 65 Room: [facility] Gender: Female Note Status: Finalized Procedure: Colonoscopy Indications: High risk colon cancer surveillance: Personal history of colonic polyps, Last colonoscopy: November 2016, Family history of colon cancer Providers: Clint SCOTT MD Referring MD: Geneva HART DO Requesting Provider: Medicines: Monitored Anesthesia Care Complications: No immediate complications. Procedure: Pre-Anesthesia Assessment: - The heart rate, respiratory rate, oxygen saturations, blood pressure, adequacy of pulmonary ventilation, and response to care were monitored throughout the procedure. The Colonoscope was introduced through the anus and advanced to the terminal ileum, with identification of the appendiceal orifice and IC valve. The colonoscopy was performed without difficulty. The patient tolerated the procedure well. The quality of the bowel preparation was good. Findings: The perianal and digital rectal examinations were normal. Four sessile polyps were found in the sigmoid colon, ascending colon and cecum. The polyps were 3 to 5 mm in size. These polyps were removed with a cold snare. Resection and retrieval were complete. The exam was otherwise without abnormality on direct and retroflexion views. Impression: - Four 3 to 5 mm polyps in the sigmoid colon, in the ascending colon and in the cecum, removed with a cold snare. Resected and retrieved. - The examination was otherwise normal on direct and retroflexion views. Recommendation: - Repeat colonoscopy in 3 years for surveillance. - Resume Xarelto (rivaroxaban) at prior dose tomorrow. Clint Scott MD Clint SCOTT MD 04/01/2020 12:20:20 PM Electronically signed by Clint SCOTT MD Number of Addenda: 0 Note Initiated On: 04/01/2020 11:55 AM Estimated Blood Loss: Estimated blood loss: none.
[2020-04-01 13:16] VITALS: BP 151/67
== END 2020-04-01 13:05 | disposition home or self-care (01) ==
LOC: M OPP 10:41
PROVIDERS: ATTEND Internal Medicine Gastroenterology
DX: Z12.11 Encounter for screening for malignant neoplasm of colon (principal); Z86.010 Personal history of colon polyps; Z80.0 Family history of malignant neoplasm of digestive organs; K63.5 Polyp of colon; I48.91 Unspecified atrial fibrillation; G47.30 Sleep apnea, unspecified; I11.0 Hypertensive heart disease with heart failure; E03.9 Hypothyroidism, unspecified; Z79.899 Other long term (current) drug therapy; Z88.5 Allergy status to narcotic agent

== ENCOUNTER → 2020-06-18 | Outpatient (CLI) | payer MEDICARE, BC, OTHER ==
[~2020-06-18] MED LIST changes: -LIDOCAINE 2% 100MG/5ML SDV (FOR ANES.) As Ordered ONE; -NS 1,000 ML IV ONE; -propofoL 200 MG/20 ML VIAL As Ordered ONE
[2020-06-18 18:27] LABS: HEPATITIS B SURFACE ANTIBODY POSITIVE (POSITIVE); HEPATITIS B SURFACE ANTIGEN NEGATIVE (NEGATIVE); HEPATITIS C VIRUS ABY INDEX < 0.0 INDEX (<0.8)
== END ==
LOC: M LAB 16:38
PROVIDERS: ATTEND Physician Assistant
DX: M06.09 Rheumatoid arthritis without rheumatoid factor, multiple sites (principal); Z79.899 Other long term (current) drug therapy

== ENCOUNTER → 2020-06-29 | Outpatient (CLI) | payer MEDICARE, BC, OTHER ==
[2020-06-29 10:03] LABS: BASO % 0.3 % (0.0-1.0); EOS # 0.1 10^3/uL (0.0-0.5); EOS % 1.8 % (0.0-3.0); HEMATOCRIT 39.2 % (36.0-47.0); HEMOGLOBIN 12.4 g/dl (12.0-15.5); LYMPH # 1.8 10^3/uL (1.5-5.0); LYMPH % 24.3 % (24.0-44.0); MEAN CORPUSCULAR HEMOGLOBIN 30.3 pg (27.0-33.0); MEAN CORPUSCULAR HGB CONC 31.6 g/dl (32.0-36.5); MEAN CORPUSCULAR VOLUME 95.8 fl (80.0-96.0); MONO # 0.7 10^3/uL (0.0-0.8); MONO % 9.3 % (0.0-5.0); NEUTROPHILS # 4.7 10^3/uL (1.5-8.5); PLATELET COUNT, AUTOMATED 295 10^3/uL (150-450); RED BLOOD COUNT 4.09 10^6/uL (4.00-5.40); WHITE BLOOD COUNT 7.3 10^3/uL (4.0-10.0)
[2020-06-29 10:41] LABS: ALBUMIN 3.5 GM/DL (3.2-5.2); BILIRUBIN,TOTAL 0.2 MG/DL (0.2-1.0); CALCIUM LEVEL 9.5 MG/DL (8.8-10.2); CHOLESTEROL RISK RATIO 3.629 (<5); CREATININE FOR GFR 1.01 MG/DL (0.55-1.30); FREE T4 1.68 NG/DL (0.76-1.46); GLOMERULAR FILTRATION RATE 58.6 (>45); POTASSIUM SERUM 4.7 MEQ/L (3.5-5.1); THYROID STIMULATING HORMONE 2.31 uIU/ML (0.358-3.740)
== END ==
LOC: M LAB 09:06
PROVIDERS: ATTEND Family Medicine
DX: N18.31 Chronic kidney disease, stage 3a (principal); E06.3 Autoimmune thyroiditis; E78.2 Mixed hyperlipidemia

== ENCOUNTER → 2020-11-25 | Outpatient (CLI) | payer MEDICARE, BC, OTHER ==
--- NOTE | 2020-11-25 17:00 | REP ---
INDICATION: ELEVATED LABS. COMPARISON: 04/05/2014. TECHNIQUE: Real-time sonographic evaluation of right upper quadrant performed. FINDINGS: The gallbladder demonstrates no evidence of intraluminal sludge or calculi, wall thickening or pericholecystic fluid. There is no intrahepatic or extrahepatic biliary dilatation, common bile duct measures 4 mm in maximum diameter. There is diffuse increased echotexture of the liver suggesting diffuse fibrofatty infiltration. No focal mass is visualized. The pancreas demonstrates homogeneous echotexture with no gross mass. The right kidney demonstrates no hydronephrosis, with a normal size of 13.0 cm in length. No free fluid is seen. IMPRESSION: Findings compatible with diffuse fibrofatty infiltration of the liver. <Electronically signed by Gilberto Pagan > 11/25/20 1519
== END ==
LOC: M RAD 09:31
PROVIDERS: ATTEND Family Medicine
DX: R74.01 Elevation of levels of liver transaminase levels (principal)

== ENCOUNTER → 2020-12-18 | Outpatient (CLI) | payer MEDICARE, BC, OTHER ==
[2020-12-18 19:39] LABS: ALBUMIN 3.3 GM/DL (3.2-5.2); ALT/SGPT 94 U/L (12-78); BILIRUBIN,DIRECT 0.1 MG/DL (0.0-0.2); BILIRUBIN,TOTAL 0.4 MG/DL (0.2-1.0); BLOOD UREA NITROGEN 15 MG/DL (7-18); CREATININE FOR GFR 1.01 MG/DL (0.55-1.30); GLOMERULAR FILTRATION RATE 58.6 (>45); IRON (FE) 40 UG/DL (50-170); PERCENT SATURATION 13.7 % (13.2-45.0); TOTAL IRON BINDING CAPACITY 293 UG/DL (250-450); TOTAL PROTEIN 7.1 GM/DL (6.4-8.2)
[2020-12-18 19:57] LABS: HEPATITIS B SURFACE ANTIGEN NEGATIVE (NEGATIVE)
[2020-12-18 20:20] LABS: HEPATITIS C VIRUS ABY INDEX < 0.0 INDEX (<0.8)
[2020-12-18 20:21] LABS: HEPATITIS B CORE ANTIBODY IGM NEGATIVE (NEGATIVE)
[2020-12-18 20:23] LABS: HEPATITIS A ANTIBODY IGM NEGATIVE (NEGATIVE)
== END ==
LOC: M LAB 14:12
PROVIDERS: ATTEND Internal Medicine Gastroenterology
DX: R94.5 Abnormal results of liver function studies (principal)

== ENCOUNTER → 2021-03-03 | Outpatient (CLI) | payer MEDICARE, BC, OTHER ==
[~2021-03-03] MED LIST changes: +OMEP40CA4 PO; -OMEP40CA97 PO
--- NOTE | 2021-03-03 12:43 | REP ---
INDICATION: M06.9 RHEUMATOID ARTHRITIS UNSPECIFIED SITE. COMPARISON: None. TECHNIQUE: AP, lateral, bilateral oblique views right and left ankle. FINDINGS: Left ankle: Osseous structures are intact and relatively normal. Joint spaces and ankle mortise are normal. Surrounding soft tissues are unremarkable. Lateral view Achilles insertion demonstrates minimal calcification at the. No further significant soft tissue abnormalities or calcifications are identified. No acute or healed fracture or dislocation. Right ankle: Osseous structures are intact and relatively normal. Joint spaces and ankle mortise are normal. Surrounding soft tissues are unremarkable. Lateral view Achilles insertion demonstrates minimal calcification at the. No further significant soft tissue abnormalities or calcifications are identified. No acute or healed fracture or dislocation. IMPRESSION: Relatively symmetric generalized age-related changes. No overt osteoarthritic or inflammatory arthritic findings appreciated. <Electronically signed by Trey Laguna > 03/03/21 [id number]
--- NOTE | 2021-03-03 12:48 | REP ---
INDICATION: M06.9 RHEUMATOID ARTHRITIS UNSPECIFIED SITE. COMPARISON: None. TECHNIQUE: AP, lateral, bilateral oblique views right and left hand. FINDINGS: Right hand demonstrates early moderate osteoarthritic changes primarily involving the distal interphalangeal joints and most notably 1st and 5th D IP joints. Findings include subchondral sclerosis, joint space narrowing, and marginal spurring/osteophyte formation. Subchondral sclerosis with minimal joint space narrowing also identified at the 1st metatarsophalangeal joint and to a lesser extent the proximal interphalangeal joints. No periarticular calcifications, lucencies or erosive changes are identified. No significant soft tissue swelling. No evidence for acute fracture or dislocation. Left hand demonstrates moderate osteoarthritic changes primarily involving the 1st through 5th distal interphalangeal joints. Findings include subchondral sclerosis, joint space narrowing, and osteophytosis. Subchondral sclerosis with minimal joint space narrowing also identified at the 1st metatarsophalangeal joint. No periarticular calcifications, lucencies or erosive changes are identified. No significant soft tissue swelling. No evidence for acute fracture or dislocation. 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 <Electronically signed by Trey Laguna > 03/03/21 [id number]
--- NOTE | 2021-03-03 12:49 | REP ---
INDICATION: M06.9 RHEUMATOID ARTHRITIS UNSPECIFIED SITE. COMPARISON: None. TECHNIQUE: AP, lateral, bilateral oblique views right and left wrist. FINDINGS: Bilateral carpal bones are relatively normal with mild age-related changes primarily involving the 1st carpometacarpal joints. No erosive changes, soft loose tissue swelling, bodies or periarticular calcifications are identified. No evidence for acute or healed injury. IMPRESSION: Relatively symmetric, mild age-related changes. <Electronically signed by Trey Laguna > 03/03/21 [id number]
== END ==
LOC: M PLAIMG 11:12
PROVIDERS: ATTEND Internal Medicine
DX: M06.9 Rheumatoid arthritis, unspecified (principal)

== ENCOUNTER → 2021-03-20 | Outpatient (CLI) | payer MEDICARE, BC, OTHER ==
[2021-03-20 18:38] LABS: BASO % 0.2 % (0.0-1.0); EOS # 0.1 10^3/uL (0.0-0.5); EOS % 1.1 % (0.0-3.0); HEMATOCRIT 38.1 % (36.0-47.0); HEMOGLOBIN 12.6 g/dl (12.0-15.5); LYMPH # 2.1 10^3/uL (1.5-5.0); MEAN CORPUSCULAR HEMOGLOBIN 30.4 pg (27.0-33.0); MEAN CORPUSCULAR HGB CONC 33.1 g/dl (32.0-36.5); MEAN CORPUSCULAR VOLUME 91.8 fl (80.0-96.0); MONO # 0.7 10^3/uL (0.0-0.8); NEUTROPHILS # 8.1 10^3/uL (1.5-8.5); NEUTROPHILS % 73.3 % (36.0-66.0); PLATELET COUNT, AUTOMATED 363 10^3/uL (150-450); RED BLOOD COUNT 4.15 10^6/uL (4.00-5.40); WHITE BLOOD COUNT 11.1 10^3/uL (4.0-10.0)
[2021-03-20 19:14] LABS: ALBUMIN 3.2 GM/DL (3.2-5.2); ALT/SGPT 74 U/L (12-78); BILIRUBIN,DIRECT 0.2 MG/DL (0.0-0.2); BILIRUBIN,TOTAL 0.5 MG/DL (0.2-1.0); BLOOD UREA NITROGEN 12 MG/DL (7-18); C REACTIVE PROTEIN QUANTITATIV 1.69 MG/DL (0.00-0.30); CALCIUM LEVEL 9.8 MG/DL (8.8-10.2); CARBON DIOXIDE LEVEL 30 MEQ/L (21-32); CHLORIDE LEVEL 104 MEQ/L (98-107); CREATININE FOR GFR 0.89 MG/DL (0.55-1.30); GLOMERULAR FILTRATION RATE > 60.0 (>45); GLUCOSE, FASTING 79 MG/DL (70-100); IMMUNOGLOBULIN G 857 MG/DL (681-1648); IMMUNOGLOBULIN M 28.7 MG/DL (40-230); POTASSIUM SERUM 4.4 MEQ/L (3.5-5.1); SODIUM LEVEL 139 MEQ/L (136-145)
[2021-03-20 19:33] LABS: ERYTHROCYTE SEDIMENTATION RATE 66 mm/hr (0-30)
== END ==
LOC: M LAB 16:56
PROVIDERS: ATTEND Internal Medicine
DX: M06.9 Rheumatoid arthritis, unspecified (principal); R68.2 Dry mouth, unspecified

== ENCOUNTER → 2021-05-06 | Outpatient (REF) | payer MEDICARE, BC, OTHER | LOC: M LAB REF 13:07 | PROVIDERS: ATTEND Nurse Practitioner Family | DX: E83.42 Hypomagnesemia (principal) ==

== ENCOUNTER → 2021-06-09 | Outpatient (CLI) | payer MEDICARE, BC, OTHER ==
[~2021-06-09] MED LIST changes: -LISI10TA15 PO; +LISI10TA24 PO; +LOSA25TA13 PO; -LOSA25TA14 PO
[2021-06-09 12:44] LABS: BASO % 0.2 % (0.0-1.0); EOS # 0.1 10^3/uL (0.0-0.5); EOS % 1.5 % (0.0-3.0); HEMATOCRIT 39.4 % (36.0-47.0); HEMOGLOBIN 12.6 g/dl (12.0-15.5); LYMPH # 1.6 10^3/uL (1.5-5.0); LYMPH % 18.4 % (24.0-44.0); MEAN CORPUSCULAR HEMOGLOBIN 28.6 pg (27.0-33.0); MEAN CORPUSCULAR VOLUME 89.5 fl (80.0-96.0); MONO # 0.6 10^3/uL (0.0-0.8); MONO % 6.6 % (2.0-8.0); NEUTROPHILS # 6.4 10^3/uL (1.5-8.5); NEUTROPHILS % 73.1 % (36.0-66.0); PLATELET COUNT, AUTOMATED 396 10^3/uL (150-450); WHITE BLOOD COUNT 8.7 10^3/uL (4.0-10.0)
[2021-06-09 13:05] LABS: HEMOGLOBIN A1c 5.3 %
[2021-06-09 13:21] LABS: ALBUMIN 3.3 GM/DL (3.2-5.2); ALT/SGPT 55 U/L (12-78); BILIRUBIN,TOTAL 0.6 MG/DL (0.2-1.0); BLOOD UREA NITROGEN 14 MG/DL (7-18); CALCIUM LEVEL 10.1 MG/DL (8.8-10.2); CARBON DIOXIDE LEVEL 32 MEQ/L (21-32); CHLORIDE LEVEL 102 MEQ/L (98-107); CHOLESTEROL LEVEL 158 MG/DL (<200); CHOLESTEROL RISK RATIO 3.434 (<5); CREATININE FOR GFR 0.78 MG/DL (0.55-1.30); GLOMERULAR FILTRATION RATE > 60.0 (>45); GLUCOSE, FASTING 88 MG/DL (70-100); HDL CHOLESTEROL 46 MG/DL (>40); LDL CHOLESTEROL 88 MG/DL (<100); NON-HDL-C 112 MG/DL; POTASSIUM SERUM 4.7 MEQ/L (3.5-5.1); SODIUM LEVEL 139 MEQ/L (136-145); TOTAL PROTEIN 7.3 GM/DL (6.4-8.2); TRIGLYCERIDES LEVEL 120 MG/DL (<150)
[2021-06-09 13:29] LABS: MALB URINE SIEMENS 7.2 MG/L
== END ==
LOC: M LAB 10:13
PROVIDERS: ATTEND Physician Assistant
DX: E11.65 Type 2 diabetes mellitus with hyperglycemia (principal)

== ENCOUNTER → 2021-08-19 | Outpatient (CLI) | payer MEDICARE, BC, OTHER | LOC: M WHC 08:46 | PROVIDERS: ATTEND Family Medicine | DX: Z12.31 Encounter for screening mammogram for malignant neoplasm of breast (principal); M81.0 Age-related osteoporosis without current pathological fracture ==

== ENCOUNTER → 2022-03-03 | Outpatient (REF) | payer MEDICARE, OTHER | LOC: M LAB REF 18:13 | PROVIDERS: ATTEND Family Medicine | DX: K61.0 Anal abscess (principal) ==

== ENCOUNTER → 2022-03-15 | Outpatient (REF) | payer MEDICARE, OTHER ==
[~2022-03-15] MED LIST changes: +ALEN70TA87 PO; -FOSA70TA PO
== END ==
LOC: M LAB REF 17:40
PROVIDERS: ATTEND Physician Assistant Medical
DX: N39.0 Urinary tract infection, site not specified (principal)

== ENCOUNTER → 2022-05-06 | Outpatient (REF) | payer MEDICARE, OTHER ==
[2022-05-06 19:11] LABS: PERCENT SATURATION 15.3 % (13.2-45.0)
== END ==
LOC: M LAB REF 16:44
PROVIDERS: ATTEND Nurse Practitioner Family
DX: D50.9 Iron deficiency anemia, unspecified (principal)

== ENCOUNTER → 2022-05-08 | Outpatient (REF) | payer MEDICARE, OTHER | LOC: M LAB REF 15:13 | PROVIDERS: ATTEND Family Medicine | DX: R39.15 Urgency of urination (principal) ==

== ENCOUNTER → 2022-07-07 | Outpatient (REF) | payer MEDICARE, OTHER | LOC: M LAB REF 17:05 | PROVIDERS: ATTEND Nurse Practitioner Adult Health | DX: R30.0 Dysuria (principal) ==

== ENCOUNTER → 2022-07-15 | Outpatient (REF) | payer MEDICARE, OTHER | LOC: M LAB REF 17:02 | PROVIDERS: ATTEND Family Medicine | DX: R30.0 Dysuria (principal) ==

== ENCOUNTER → 2022-08-24 | Outpatient (CLI) | payer MEDICARE, BC, OTHER | LOC: M WHC 09:13 | PROVIDERS: ATTEND Family Medicine | DX: Z12.31 Encounter for screening mammogram for malignant neoplasm of breast (principal) ==

== ENCOUNTER → 2023-01-01 | Outpatient (REF) | payer MEDICARE, BC, OTHER | LOC: M LAB REF 14:59 | PROVIDERS: ATTEND Family Medicine | DX: R30.0 Dysuria (principal) ==

== ENCOUNTER → 2023-02-02 | Outpatient (REF) | payer MEDICARE, BC, OTHER | LOC: M LAB REF 16:54 | PROVIDERS: ATTEND Nurse Practitioner Adult Health | DX: R30.0 Dysuria (principal) ==

== ENCOUNTER → 2023-04-19 | Outpatient (CLI) | payer MEDICARE, BC, OTHER | LOC: M SLEEP HO 11:17 | PROVIDERS: ATTEND Internal Medicine Cardiovascular Disease | DX: I27.81 Cor pulmonale (chronic) (principal) ==

== ENCOUNTER → 2023-06-08 | Day surgery (SDC) | payer MEDICARE, BC, OTHER ==
[~2023-06-08] VITALS: Ht 154.9 cm; Wt 67.1 kg
[~2023-06-08] MED LIST changes: +BYDU2INJ7 SC; +DIGO0.253 PO; +HUMI40IN2; +LEVO100T5 PO; +LEVO88TA3 PO; +MAGN50TA PO; +METF500T13 PO; +NS 1,000 ML IV ONE; +PROBCAP14 PO; +SIMETHICONE 40MG/0.6ML DROPS 30ML As Ordered ONE; +VITACAP8 PO; +propofoL 200 MG/20 ML VIAL As Ordered ONE
[2023-06-08 07:56] VITALS: TEMP 96.4
[2023-06-08 08:15] VITALS: BP 142/63; O2SAT 96
== END | disposition home or self-care (01) ==
LOC: M OPP 06:41
PROVIDERS: ATTEND Internal Medicine Gastroenterology
DX: Z86.010 Personal history of colon polyps (principal); Z80.0 Family history of malignant neoplasm of digestive organs; D12.2 Benign neoplasm of ascending colon; K64.8 Other hemorrhoids; K57.30 Diverticulosis of large intestine without perforation or abscess without bleeding; I11.0 Hypertensive heart disease with heart failure; I48.91 Unspecified atrial fibrillation; I50.9 Heart failure, unspecified; R12 Heartburn; E11.9 Type 2 diabetes mellitus without complications; E03.9 Hypothyroidism, unspecified; Z87.19 Personal history of other diseases of the digestive system; G47.33 Obstructive sleep apnea (adult) (pediatric); Z79.84 Long term (current) use of oral hypoglycemic drugs; Z79.899 Other long term (current) drug therapy; Z88.5 Allergy status to narcotic agent; Z88.1 Allergy status to other antibiotic agents; N18.9 Chronic kidney disease, unspecified; Z83.2 Family history of diseases of the blood and blood-forming organs and certain disorders involving the immune mechanism; M06.9 Rheumatoid arthritis, unspecified; Z83.3 Family history of diabetes mellitus

== ENCOUNTER → 2023-07-14 | Outpatient (REF) | payer MEDICARE, BC, OTHER ==
[~2023-07-14] MED LIST changes: -NS 1,000 ML IV ONE; -SIMETHICONE 40MG/0.6ML DROPS 30ML As Ordered ONE; -propofoL 200 MG/20 ML VIAL As Ordered ONE
== END ==
LOC: M LAB REF 17:34
PROVIDERS: ATTEND Nurse Practitioner Adult Health
DX: R30.0 Dysuria (principal)

== ENCOUNTER → 2023-08-25 | Outpatient (REF) | payer MEDICARE, BC, OTHER | LOC: M LAB REF 16:55 | PROVIDERS: ATTEND Nurse Practitioner Adult Health | DX: R30.0 Dysuria (principal) ==

== ENCOUNTER → 2023-09-08 | Outpatient (CLI) | payer MEDICARE, BC | LOC: M WHC 10:44 | PROVIDERS: ATTEND Nurse Practitioner Adult Health | DX: Z12.31 Encounter for screening mammogram for malignant neoplasm of breast (principal) ==

== ENCOUNTER → 2023-10-14 | Outpatient (CLI) | payer MEDICARE, BC | LOC: M PLARAD 08:12 | PROVIDERS: ATTEND Nurse Practitioner Adult Health | DX: M54.50 Low back pain, unspecified (principal) ==

== ENCOUNTER → 2023-10-28 | Outpatient (CLI) | payer MEDICARE, BC | LOC: M PLAIMG 11:59 | PROVIDERS: ATTEND Family Medicine | DX: I50.32 Chronic diastolic (congestive) heart failure (principal) ==

== ENCOUNTER → 2023-11-29 | Outpatient (CLI) | payer MEDICARE, BC | LOC: M PLAIMG 13:00 | PROVIDERS: ATTEND Internal Medicine | DX: I50.9 Heart failure, unspecified (principal) ==

== ENCOUNTER → 2023-11-29 | Outpatient (CLI) | payer MEDICARE, BC | LOC: M WHC 12:58 | PROVIDERS: ATTEND Internal Medicine | DX: S22.080A Wedge compression fracture of T11-T12 vertebra, initial encounter for closed fracture (principal); W18.30XA Fall on same level, unspecified, initial encounter; Y92.009 Unspecified place in unspecified non-institutional (private) residence as the place of occurrence of the external cause ==

== ENCOUNTER → 2023-12-10 | Outpatient (REF) | payer MEDICARE, OTHER | LOC: M LAB REF 13:19 | PROVIDERS: ATTEND Nurse Practitioner Adult Health | DX: R30.0 Dysuria (principal) ==

== ENCOUNTER 2024-03-24 13:13 | Emergency (ER) | payer MEDICARE, BC ==
[~2024-03-24] VITALS: Ht 154.9 cm; Wt 72.0 kg
[2024-03-24 13:45] VITALS: TEMP 98.8
[2024-03-24 14:05] LABS: BASO % 0.3 % (0.0-1.0); EOS # 0.2 10^3/uL (0.0-0.5); EOS % 1.8 % (0.0-3.0); HEMATOCRIT 37.6 % (36.0-47.0); HEMOGLOBIN 12.3 g/dl (12.0-15.5); LYMPH # 2.1 10^3/uL (1.5-5.0); LYMPH % 22.8 % (24.0-44.0); MEAN CORPUSCULAR HEMOGLOBIN 30.4 pg (27.0-33.0); MEAN CORPUSCULAR HGB CONC 32.7 g/dl (32.0-36.5); MEAN CORPUSCULAR VOLUME 92.8 fl (80.0-96.0); MONO # 0.6 10^3/uL (0.0-0.8); MONO % 6.6 % (2.0-8.0); NEUTROPHILS # 6.4 10^3/uL (1.5-8.5); NEUTROPHILS % 68.2 % (36.0-66.0); PLATELET COUNT, AUTOMATED 344 10^3/uL (150-450); RED BLOOD COUNT 4.05 10^6/uL (4.00-5.40); WHITE BLOOD COUNT 9.3 10^3/uL (4.0-10.0)
[2024-03-24 14:41] LABS: ALBUMIN 3.4 G/DL (3.2-5.2); ALKALINE PHOSPHATASE 66 U/L (46-116); ALT/SGPT 36 U/L (7.0-40); AST/SGOT 50 U/L (<34); BILIRUBIN,DIRECT < 0.1 MG/DL (<0.4); BILIRUBIN,TOTAL 0.3 MG/DL (0.3-1.2); BLOOD UREA NITROGEN 15 MG/DL (9-23); CALCIUM LEVEL 9.1 MG/DL (8.3-10.6); CARBON DIOXIDE LEVEL 31 MMOL/L (20-31); CHLORIDE LEVEL 104 MMOL/L (98-107); CK-MB VALUE MASS < 1.0 NG/ML (<3.6); CPK CREATINE PHOSPHOKINASE 117 U/L (34-145); CREATININE FOR GFR 1.07 MG/DL (0.55-1.30); FREE T4 1.43 NG/DL (0.89-1.76); GLOMERULAR FILTRATION RATE 54.1 (>45); GLUCOSE, FASTING 84 MG/DL (74-106); LIPASE 44 U/L (12-53); MB/CK RELATIVE INDEX 0.85 (< OR =4); POTASSIUM SERUM 5.9 MMOL/L (3.5-5.1); SODIUM LEVEL 137 MMOL/L (136-145); THYROID STIMULATING HORMONE 2.932 uIU/ML (0.55-4.78); TOTAL PROTEIN 7.2 G/DL (5.7-8.2)
[2024-03-24 14:45] VITALS: BP 139/65
[2024-03-24] MEDS: NITROGLYCERIN 0.4MG SUBL TABLET SL STA (14:45)
[2024-03-24 15:21] LABS: CK-MB VALUE MASS < 1.0 NG/ML (<3.6)
[2024-03-24 15:23] LABS: CPK CREATINE PHOSPHOKINASE 90 U/L (34-145); MB/CK RELATIVE INDEX 1.11 (< OR =4)
[2024-03-24] MEDS ORDERED: ISOVUE-370 76% 100ML VIAL As Ordered ONE (15:24)
[2024-03-24 17:04] LABS: CK-MB VALUE MASS < 1.0 NG/ML (<3.6)
[2024-03-24 17:05] LABS: CPK CREATINE PHOSPHOKINASE 81 U/L (34-145); MB/CK RELATIVE INDEX 1.23 (< OR =4)
[2024-03-24 17:15] VITALS: BP 127/58; O2SAT 98
== END 2024-03-24 17:40 | disposition home or self-care (01) ==
LOC: EDSEX 13:13 → M ED 13:13 → EDBD 13:13 → M ED 17:40
DX: R07.9 Chest pain, unspecified (principal); I45.10 Unspecified right bundle-branch block; I48.91 Unspecified atrial fibrillation; I50.22 Chronic systolic (congestive) heart failure; I11.0 Hypertensive heart disease with heart failure; E78.5 Hyperlipidemia, unspecified; F10.10 Alcohol abuse, uncomplicated; Z88.5 Allergy status to narcotic agent; Z88.8 Allergy status to other drugs, medicaments and biological substances; Z79.84 Long term (current) use of oral hypoglycemic drugs; Z79.899 Other long term (current) drug therapy
CPT/HCPCS: 36415; 71045; 71275; 80047; 80048; 80076; 82550; 82553; 83690; 83880; 84439; 84443; 84484; 85025; 93005; 93041; 94760; 99285; Q9967

== ENCOUNTER → 2024-09-11 | Outpatient (CLI) | payer MEDICARE, BC | LOC: M WHC 09:29 | PROVIDERS: ATTEND Nurse Practitioner Adult Health | DX: Z12.31 Encounter for screening mammogram for malignant neoplasm of breast (principal) ==

== ENCOUNTER → 2024-10-05 | Outpatient (CLI) | payer MEDICARE, BC | LOC: M RAD 12:17 | PROVIDERS: ATTEND Physician Assistant | DX: R09.89 Other specified symptoms and signs involving the circulatory and respiratory systems (principal) ==

== ENCOUNTER → 2025-01-17 | Outpatient (REF) | payer MEDICARE, BC ==
[~2025-01-17] MED LIST changes: -BYDU2INJ7 SC; +EXEN2AUT SC
== END ==
LOC: M LAB REF 16:55
DX: R30.0 Dysuria (principal)

== ENCOUNTER → 2025-03-14 | Outpatient (CLI) | payer MEDICARE, BC ==
[2025-03-14 13:16] LABS: BASO # 0.0 10^3/uL (0.0-0.2); BASO % 0.3 % (0.0-1.0); EOS # 0.2 10^3/uL (0.0-0.5); EOS % 1.3 % (0.0-3.0); LYMPH # 2.2 10^3/uL (1.5-5.0); LYMPH % 18.3 % (24.0-44.0); MONO # 0.7 10^3/uL (0.0-0.8); MONO % 6.2 % (2.0-8.0); NEUTROPHILS # 8.7 10^3/uL (1.5-8.5); NEUTROPHILS % 73.6 % (36.0-66.0); PLATELET COUNT, AUTOMATED 379 10^3/uL (150-450)
[2025-03-14 13:49] LABS: VITAMIN B12 LEVEL 1005.0 PG/ML (211-911)
[2025-03-14 13:50] LABS: IRON (FE) 62.0 UG/DL (50-170)
[2025-03-17 14:33] LABS: LYME TOTAL ANTIBODY CIA <= 0.90 Index (<=0.90)
[2025-03-19 15:01] LABS: BORRELIA SPECIES DNA NOT DETECTED (NOT DETECT)
[2025-03-20 13:58] LABS: VITAMIN B6,PYRIDOXAL PHOSPHATE 20.1 ng/mL (2.1-21.7)
== END ==
LOC: M WUC 10:49
PROVIDERS: ATTEND Family Medicine
DX: M70.62 Trochanteric bursitis, left hip (principal); R20.2 Paresthesia of skin

== ENCOUNTER → 2025-04-05 | Outpatient (CLI) | payer MEDICARE, BC ==
[~2025-04-05] MED LIST changes: +FARX1TAB3 PO; +FLEC25TA PO; +OMEP-173 PO; +ROMO105S SQ; +VITA100093 PO
== END ==
LOC: M PLARAD 10:28
PROVIDERS: ATTEND Family Medicine
DX: R20.2 Paresthesia of skin (principal); M54.16 Radiculopathy, lumbar region; M51.46 Schmorl's nodes, lumbar region

== ENCOUNTER 2025-04-19 07:27 | Day surgery (SDC) | payer MEDICARE, BC ==
[~2025-04-19] VITALS: Ht 154.9 cm; Wt 70.7 kg
[2025-04-19] MEDS ORDERED: LIDOCAINE 2% 100 MG/5 ML SDV (FOR ANES.) As Ordered ONE (08:17)
[2025-04-19 08:36] VITALS: TEMP 97.5
[2025-04-19 09:01] VITALS: BP 110/68; O2SAT 98
== END 2025-04-19 09:06 | disposition home or self-care (01) ==
LOC: M OPP 07:27
PROVIDERS: ATTEND Internal Medicine Gastroenterology
DX: D12.3 Benign neoplasm of transverse colon (principal); D12.2 Benign neoplasm of ascending colon; D12.0 Benign neoplasm of cecum; K57.30 Diverticulosis of large intestine without perforation or abscess without bleeding; K64.8 Other hemorrhoids; Z86.0101 Personal history of adenomatous and serrated colon polyps; I48.91 Unspecified atrial fibrillation; G47.30 Sleep apnea, unspecified; Z88.1 Allergy status to other antibiotic agents; Z88.5 Allergy status to narcotic agent; Z79.51 Long term (current) use of inhaled steroids; Z79.84 Long term (current) use of oral hypoglycemic drugs; Z79.01 Long term (current) use of anticoagulants; Z79.899 Other long term (current) drug therapy

== ENCOUNTER → 2025-06-29 | Outpatient (REF) | payer MEDICARE, BC | LOC: M LAB REF 15:20 | PROVIDERS: ATTEND Nurse Practitioner Adult Health | DX: J03.91 Acute recurrent tonsillitis, unspecified (principal) ==